=== PATIENT | female | born 2005 | race Caucasian/White ===

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

== ENCOUNTER → 2023-07-02 15:09 | Outpatient (BNVA) | payer OTHER, SELFPAY | PROVIDERS: Visit Provider Family Medicine | DX: R11.2 Nausea with vomiting, unspecified (principal); R14.0 Abdominal distension (gaseous); R10.11 Right upper quadrant pain | CPT/HCPCS: 80053; 80061; 83690; 84443; 85025 ==

== ENCOUNTER 2023-07-12 06:05 | Outpatient (CLI) | payer OTHER, SELFPAY ==
--- NOTE | 2023-07-12 06:15 | US_ITS ---
WS: [id number] RIGHT UPPER QUADRANT ULTRASOUND HISTORY: post-prandial N/V/D, bloating, RUQ pain COMPARISON: None available. Liver: 15.7 cm in length. Normal size liver and echogenicity. No bile duct dilatation or mass. Portal Vein: Normal hepatopetal flow with monophasic waveform. Gallbladder: Normally distended gallbladder with no stones or wall thickening. CBD: 0.3 cm Pancreas: Normal size and echogenicity. Right kidney: 11.0 cm in length. Normal size and echogenicity. No hydronephrosis or mass. Aorta and IVC: Unremarkable abdominal aorta and IVC. No ascites. IMPRESSION: Normal right upper quadrant ultrasound.
== END 2023-07-12 06:06 | disposition home or self-care (01) ==
LOC: RAD 06:05
PROVIDERS: PCP Family Medicine; Visit Provider Family Medicine
DX: R11.0 Nausea (principal); R11.2 Nausea with vomiting, unspecified; R14.0 Abdominal distension (gaseous); R10.11 Right upper quadrant pain
CPT/HCPCS: 76705

== ENCOUNTER → 2024-05-22 10:03 | Outpatient (BNVA) | payer OTHER, SELFPAY | PROVIDERS: PCP Family Medicine; Visit Provider Nurse Practitioner Family | DX: J02.9 Acute pharyngitis, unspecified (principal) | CPT/HCPCS: 87071; 87880 ==

== ENCOUNTER 2024-09-02 20:11 | Inpatient (IN) | payer OTHER, SELFPAY ==
[2024-09-02] VITALS (7 sets, daily range): BP systolic 131; BP diastolic 85; PULSE 60–88; O2SAT 97–99; BMI 30.9
[2024-09-02 22:20] LABS: Basophils % 0.4 %; Eosinophils # 0.2 10^3/uL (0.0-0.8); Eosinophils % 1.8 %; Hematocrit 35.3 % (36-47); Lymphocytes # 2.5 10^3/uL (0.8-4.8); Lymphocytes % 23.3 %; Mean Corpuscular HGB Conc 33.1 g/dL (30-55); Mean Corpuscular Hemoglobin 29.3 pg (27-33); Mean Corpuscular Volume 88.5 fl (85-98); Mean Platelet Volume 10.5 fL (7.4-10.4); Monocytes # 0.7 10^3/uL (0.2-0.9); Monocytes % 6.7 %; Neutrophils % 67.3 %; Nucleated Red Blood Cells % 0 %; Platelet Count 231 10^3/cmm (157-399); Red Blood Count 3.99 10^6/uL (3.85-5.65); Red Cell Distribution Width 11.9 % (12.1-15.1); White Blood Count 10.84 10^3/uL (3.29-11.43)
[2024-09-03] VITALS (16 sets, daily range): BP systolic 107–135; BP diastolic 58–80; PULSE 57–86; RESP 14–17; TEMP 36.5–36.9; O2SAT 97–100
--- NOTE | 2024-09-03 00:38 | PM.OPHPUD ---
Labor & Delivery H&P Update Date of Procedure: September 03, 2024 Date H&P Performed: 09/03/24 Changes to previous documentation: Spontaneous rupture of membranes, as well as cervical change Admission Diagnosis: 19-year-old 1 para 0 at 37 weeks estimated gestational age presenting with spontaneous rupture membranes Planned procedure: Vaginal delivery Other information: The patient is a healthy 19-year-old female who presented to the hospital after having a gush of fluid just prior to arriving at the hospital. After being evaluated on the OB floor, she was found to be grossly ruptured. She was found to be nitrazine positive. She is also found to be 5 m dilated and 90% effaced. The patient had consistent care during her . There were no complications or concerns during her . Her blood type is A+. Her antibody screen was negative. She passed her glucose screen. She was GBS negative. She was rubella nonimmune. Her infectious disease profile was within normal limits. Related Problem List Diagnoses (1) 37 weeks gestation of : (2) Spontaneous rupture of membranes: A&P Assessment and plan (1) 37 weeks gestation of : I anticipate routine labor and spontaneous vaginal delivery Status: Acute (2) Spontaneous rupture of membranes: Status: Acute PDMP PDMP Reviewed: Not Reviewed
--- NOTE | 2024-09-03 00:42 | P.PCNOB_ITS ---
Delivery Note: Date of delivery: September 03, 2024 Pre-delivery diagnoses: 19-year-old 1 at 37 weeks estima esme gestational age presenting with spontaneous rupture of membranes Post-delivery diagnoses: Status post spontaneous vaginal delivery Procedure: Spontaneous vaginal delivery Delivering Physician: Kaleb Narvaez Estimated blood loss (mL): 100 Pre-Delivery Course: The patient presented to the hospital with spontaneous rupture membranes. She was also noted to be 5 cm dilated and 90% effaced. She quickly progressed to complete without difficulty. Delivery: DELIVERY: The patient progressed to complete without difficulty. She delivered a female with a weight of 6 pounds 5 ounces with Apgars of 8, 9. The baby was delivered from the REBECCA position and placed on the mother's abdomen. The cord was then clamped and cut approximately 1 minute after delivery. There was no nuchal cord. There was no meconium. The placenta and 3 vessel cord were delivered intact shortly thereafter. The perineum and vaginal vault were carefully examined. A second-degree posterior midline laceration was noted. It was repaired with 3-0 Vicryl in usual fashion. Both the mother and the baby were in stable condition. Post-Delivery Status: Good History History History 1 Term Miscarriages/Ectopic Living Children A&P Assessment and plan (1) Spontaneous vaginal delivery: I anticipate routine care. (2) 37 weeks gestation of : PDMP PDMP Reviewed: Not Reviewed Coding Level of Care Code Acute Code for Chg Fwd Diagnoses Spontaneous vaginal delivery O80 37 weeks gestation of Z3A.37
[2024-09-03] MEDS: PRENATAL VIT NO.130/IRON/FOLIC 1 EACH TABLET PO (09:19)
[2024-09-03] MEDS: docusate sodium 100 mg Capsule PO ×2 (09:19→20:27)
[2024-09-03] MEDS: ibuprofen 800 mg tablet PO ×3 (09:19→20:26)
[2024-09-03] MEDS: benzocaine-menthol 78 gm Canister 1 SPRAY TOPICAL (09:20)
[2024-09-03 12:46] LABS: Hematocrit 32.7 % (36-47); Mean Corpuscular HGB Conc 33.6 g/dL (30-55); Mean Corpuscular Volume 89.1 fl (85-98); Mean Platelet Volume 10.6 fL (7.4-10.4); Platelet Count 198 10^3/cmm (157-399); Red Blood Count 3.67 10^6/uL (3.85-5.65); Red Cell Distribution Width 12.1 % (12.1-15.1); White Blood Count 14.48 10^3/uL (3.29-11.43)
[2024-09-03] MEDS: lanolin oint 7 gm 1 APPLIC TOPICAL (20:26)
[2024-09-04 04:40] VITALS: BP 116/74; PULSE 65; RESP 16; TEMP 36.7
[2024-09-04 08:00] VITALS: BP 125/78; PULSE 57; RESP 18; TEMP 36.7
--- NOTE | 2024-09-04 08:04 | PM.OBGYDC ---
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 She was also noted to be 5 cm dilated. She quickly progressed to complete without difficulty. She had an unremarkable delivery of a healthy female . She did have a second-degree posterior midline tear which was repaired appropriately. Her course was also unremarkable. Her bleeding was within normal limits. The baby initially had some difficulty with breast-feeding, but improved dramatically towards the end of her hospital stay. Her pain was well-controlled. Information Peripartum Data: Infant Delivery Method: Vaginal Physical Exam Narrative: The patient is alert. She appears comfortable. Her heart has a regular rate and rhythm with no murmurs appreciated. Lungs are clear to auscultation bilaterally. Her fundus is firm and below the umbilicus. History History History 1 Term Miscarriages/Ectopic Living Children Discharge Data Studies Completed and Pending Laboratory Results WBC 14.48 10^3/uL (3.29-11.43) H 09/03/24 12:34 RBC 3.67 10^6/uL (3.85-5.65) L 09/03/24 12:34 Hgb 11.00 g/dL (11.27-16.99) L 09/03/24 12:34 Hct 32.7 % (36-47) L 09/03/24 12:34 MCV 89.1 fl (85-98) 09/03/24 12:34 MCH 30.0 pg (27-33) 09/03/24 12:34 MCHC 33.6 g/dL (30-55) 09/03/24 12:34 RDW 12.1 % (12.1-15.1) 09/03/24 12:34 Plt Count 198 10^3/cmm (157-399) 09/03/24 12:34 MPV 10.6 fL (7.4-10.4) H 09/03/24 12:34 Neut % (Auto) 67.3 % 09/02/24 21:46 Lymph % (Auto) 23.3 % 09/02/24 21:46 [place] % (Auto) 6.7 % 09/02/24 21:46 Eos % (Auto) 1.8 % 09/02/24 21:46 Baso % (Auto) 0.4 % 09/02/24 21:46 Neut # (Auto) 7.30 10^3/uL (1.8-7.7) 09/02/24 21:46 Lymph # (Auto) 2.5 10^3/uL (0.8-4.8) 09/02/24 21:46 [place] # (Auto) 0.7 10^3/uL (0.2-0.9) 09/02/24 21:46 Eos # (Auto) 0.2 10^3/uL (0.0-0.8) 09/02/24 21:46 Baso # (Auto) 0.0 10^3/uL (0.0-0.1) 09/02/24 21:46 Nucleated RBC % (auto) 0 % 09/02/24 21: Nucleated RBCs # 0.0 /100WBC 09/02/24 21:46 Blood Type A Positive 09/02/24 21:46 Rho(D) Type Rh positive 09/02/24 21:46 Antibody Screen Negative 09/02/24 21:46 Vitals Last Vital Signs Temp 98.0 F 09/04/24 04:40 Pulse 65 09/04/24 04:40 Resp 16 09/04/24 04:40 BP 116/74 09/04/24 04:40 Pulse Ox 97 09/03/24 22:50 O2 Del Method Room Air 09/04/24 04:40 Results Labs OB ([facility]): Blood Type A Positive 09/02/24 Antibody Screen Negative 09/02/24 Hct, (36-47) 32.7 % L 09/03/24 Hgb, (11.27-16.99) 11.00 g/dL L 09/03/24 Rho(D) Type Rh positive 09/02/24 Plt Count, (157-399) 198 10^3/cmm 09/03/24 TSH, (0.27-4.20) 2.16 uIU/mL 07/02/23 Discharge Plan Discharge Patient Disposition: Home Condition: Stable Prescriptions: New ibuprofen 800 mg Tablet 800 mg PO TID Qty: 45 0RF Continued [id number] 30 mg iron- 1.4 mg-300 mg Combo Pack Discharge Orders: Discharge Order (Routine); Ordered 09/04/24 Ordered By: Kaleb Narvaez Referrals: Kaleb Narvaez MD [Physician, Family Practice] - 10/14/24 10:50 am Discharge Diet: Usual diet Discharge Activity: Limit activity as instructed Patient Instructions: Depression (DC), Opioid Safety (DC), Preeclampsia and Eclampsia After Delivery (GEN), Hemorrhage (DC), OB Discharge Report, OB Food/Drug Interaction Guide, OB Care at Home, Opioid Safety, OB Vaginal Deliveries, Abnormal Bleeding Discharge Attestations MANDARIN TEACHER Time Spent in Discharge Care*: less than 30 min Coding Level of Care Code Acute Code for Chg Fwd Diagnoses Spontaneous vaginal delivery O80 37 weeks gestation of Z3A.37
[2024-09-04 11:43] VITALS: BP 137/84; PULSE 71; RESP 16
== END 2024-09-04 10:35 | disposition home or self-care (01) | DRG 807 ==
LOC: OPOB 20:15 → OBGYN 22:19
PROVIDERS: Admitting Provider Family Medicine; PCP Family Medicine; Visit Provider Family Medicine
DX: O70.1 Second degree perineal laceration during delivery (principal); Z37.0 Single live birth; Z3A.37 37 weeks gestation of pregnancy
CPT/HCPCS: 59409; 83986; 85025; 85027; 86850; 86900; J9999

== ENCOUNTER 2025-03-09 18:05 | Emergency (ER) | payer SELFPAY ==
[2025-03-09 18:07] VITALS: BP 147/85; PULSE 98; RESP 14; TEMP 36.9; O2SAT 100
--- OUTSIDE RECORDS SUMMARY | 2025-03-09 18:13 | XMS_ITS | Data Portability ---
Author Organization CYNDIE Yaron Wu [facility] SystemsAngel[facility], [facility] Address [address] [address] Assessment Encounter Date Assessment Date Assessment LastModified by Organization Details LastModified Time 10/13/2024 10/13/2024 Still deciding on control will let us know if she decides. [email or web address] Not available 10/13/2024 14:43:13 Plan of Treatment Reminders Order Date Submit Date Provider Last Modified By Organization Details Last Modified Time Details Appointments LAB 2024 11:50A M LAB Not available Not available Not available ROYLANCE OBI 2024 01:20P M Kaleb Narvaez MD Not available Not available Not available [employer] 2025 12:00P M Kaleb Narvaez MD Not available Not available Not available Lab urinalysi s, complete 2024 025 [email or web address] [facility], [address], [address], [place], [address], 10/13/2024 18:16:34 culture, urine 2024 025 [facility], [address] [place] [address] [address], [address] [place], [address], 10/16/2024 01:36:02 pap, IG + reflex HPV mRNA E6/E7 2024 025 Qoiza [facility], [address] [place] [address] [address], [address] [place], [address], 10/21/2024 06:42:59 streptoco ccus group B, culture, unspecifi ed specimen 2024 025 [facility], [address], [address] [place], [address], 08/30/2024 09:20:53 Referral None recorded. Procedures None recorded. Surgeries None recorded. Imaging None recorded. Medication Orders None recorded. Patient TargetsNo targets recorded. Patient InstructionsNo instructions recorded. Reason for Referral None Reported. Results Created Date Observation Date Name Description Value Unit Range Abnormal Flag Note LastModifiedBy Organization Detail LastModifiedTime 07/03/1907/02/2024 CBC WBC 7.7 x10 4.0-10 .5 Not Available [facility] [address] [facility], [place], [address], 07/02/2024 10:48:16 07/03/19 25 07/02/2024 CBC RBC 4.20 x10 3.50-5 .50 Not Available [facility] [address] [facility], [place], [address], 07/02/2024 10:48:16 07/03/19 25 07/02/2024 CBC HGB 12.4 g/dL 12.0-1 6.0 Not Available [facility] [address] [facility], [place], [address], 07/02/2024 10:48:16 07/03/19 25 07/02/2024 CBC HCT 38.6 % 37.0-4 7.0 Not Available [facility] [address] [facility], [place], [address], 07/02/2024 10:48:16 07/03/19 25 07/02/2024 CBC MCV 92.0 fL 80.0-9 9.9 Not Available [facility] [address] [facility], [place], [address], 07/02/2024 10:48:16 07/03/19 25 07/02/2024 CBC MCH 29.4 pg 27.0-3 2.0 Not Available [facility] [address] [facility], [place], [address], 07/02/2024 10:48:16 07/03/19 25 07/02/2024 CBC MCHC 32.0 g/dL 32.0-3 6.0 Not Available [facility] [address] [facility], [place], [address], 07/02/2024 10:48:16 07/03/19 25 07/02/2024 CBC RDW 13.2 % 11.5-1 4.5 Not Available [facility] [address] [facility], [place], [address], 07/02/2024 10:48:16 07/03/19 25 07/02/2024 CBC plt 237.5 x10 140.0- 451.0 Not Available [facility] [address] [facility] 1, [place], [address], 07/02/2024 10:48:16 07/03/19 25 07/02/2024 CBC lymphocytes % 22.8 % 20.0-5 0.0 Not Available [facility] [address] [facility], [place], [address], 07/02/2024 10:48:16 07/03/19 25 07/02/2024 CBC granulcytes % 71.0 % 30.0-7 0.0 high Not Available [facility] [address] [facility], [place], [address], 07/02/2024 10:48:16 07/03/19 25 07/02/2024 CBC monocytes % 3.9 % 2.0-16 .0 Not Available [facility] [address] [facility], [place], [address], 07/02/2024 10:48:16 07/03/19 25 07/02/2024 CBC granulcytes# 5.5 x10 Not Sanna ilable [facility] [address] [facility] [address], [place], [address], 07/02/2024 10:48:16 07/03/19 25 07/02/2024 CBC lymphocytes # 1.8 x10 Not Available [facility] [address] [address], [place], [address], 07/02/2024 10:48:16 07/03/19 25 07/02/2024 CBC monocytes # 0.3 x10 Not Avai lable [facility] [address] [address], [place], [address], 07/02/2024 10:48:16 07/03/19 25 07/02/2024 GLUCO SE SCREE N glucose screen 134.0 mg/dL high Not Available [facility] [address] [facility] [address], [place], [address], 07/02/2024 11:18:34 08/28/19 25 08/30/2024 STREP TOCOC CUS, GROUP B CULTU RE streptococcu s, group B culture SEE NOTE STREP TOCOC CUS, GROUP B CULTU RE Micro Numbe r: [id number] Test Statu s: Final Speci men Sourc e: Vagin al/an orect al Speci men Quali ty: Adequ ate Resul t: No group B Strep tococ cus isola esme Note per CDC guide lines optim al recov ambrocio is achie patrice by swabb ing both the lower vagin a and rectu m (thro ugh the anal sphin cter) . Not Available [facility] [address], [place], [address], 08/30/2024 09:20:53 10/14/19 25 10/13/2024 URINA LYSIS WITH MICRO color YELLOW Not Available [facility] [address], [place], [address], 10/13/2024 15:33:25 10/14/19 25 10/13/2024 URINA LYSIS WITH MICRO clarity CLOUDY Not Available [facility] [address], [place], [address], 10/13/2024 15:33:25 10/14/19 25 10/13/2024 URINA LYSIS WITH MICRO glu NEGATI VE Not Available [facility] [address], [place], [address], 10/13/2024 15:33:25 10/14/19 25 10/13/2024 URINA LYSIS WITH MICRO bili NEGATI VE Not Available [facility] [address], [place], [address], 10/13/2024 15:33:25 10/14/19 25 10/13/2024 URINA LYSIS WITH MICRO ket NEGATI VE Not Available [facility] [address], [place], [address], 10/13/2024 15:33:25 10/14/19 25 10/13/2024 URINA LYSIS WITH MICRO S.g 1.020 1.005- 1.025 Not Available [facility] [address], [place], [address], 10/13/2024 15:33:25 10/14/19 25 10/13/2024 URINA LYSIS WITH MICRO pH 6.5 5.0-7. 0 Not Available [facility] [address], [place], [address], 10/13/2024 15:33:25 10/14/19 25 10/13/2024 URINA LYSIS WITH MICRO pro 2+ high Not Available [facility] [address], [place], [address], 10/13/2024 15:33:25 10/14/19 25 10/13/2024 URINA LYSIS WITH MICRO uro 1.0 E.U./D L Not Available [facility] [address], [place], [address], 10/13/2024 15:33:25 10/14/19 25 10/13/2024 URINA LYSIS WITH MICRO nit NEGATI VE Not Available [facility] [address], [place], [address], 10/13/2024 15:33:25 10/14/19 25 10/13/2024 URINA LYSIS WITH MICRO blo 2+ high Not Available [facility] [address], [place], [address], 10/13/2024 15:33:25 10/14/19 25 10/13/2024 URINA LYSIS WITH MICRO rosalinda 1+ high Not Available [facility] [address], [place], [address], 10/13/2024 15:33:25 10/14/19 25 10/13/2024 URINA LYSIS WITH MICRO WBC 100 PACKED abnormal > Not Available [facility] [address], [place], [address], 10/13/2024 15:33:25 10/14/19 25 10/13/2024 URINA LYSIS WITH MICRO RBC 15-20 abnormal Not Available [facility] [address], [place], [address], 10/13/2024 15:33:25 10/14/19 25 10/13/2024 URINA LYSIS WITH MICRO epi cells NEGATI VE Not Available [facility] [address] [facility], [place], [address], 10/13/2024 15:33:25 10/14/19 25 10/13/2024 URINA LYSIS WITH MICRO bacteria NEGATI VE Not Available [facility] [address] [facility] 1, [place], [address], 10/13/2024 15:33:25 10/14/19 25 10/13/2024 URINA LYSIS WITH MICRO other NG Not Available [facility] [address] [facility] 1, [place], [address], 10/13/2024 15:33:25 10/14/19 25 10/16/2024 CULTU RE, URINE , ROUTI NE culture, urine, routine SEE NOTE abnormal CULTU RE, URINE , ROUTI NE Micro Numbe r: [id number] Test Statu s: Final Speci men Sourc e: Urine Speci men Quali ty: Adequ ate Resul t: Great er than 100,0 00 CFU/m L of Esche melba a coli E.col i ----- ----- ----- - INT KAYLEIGH AMOX/ CLAVU LANAT E S <=2 AMP/S ULBAC RODRIGUEZ S <=2 CEFAZ PETERSON NR <=4 2 CEFEP EDGARDO S <=0.1 2 CEFTA ZIDIM E S <=1 CEFTR IAXON E S <=0.2 5 CIPRO FLOXA YORDAN S <=0.0 6 GENTA MICIN S <=1 IMIPE NEM S <=0.2 5 LEVOF LOXAC IN S <=0.1 2 MEROP ENEM S <=0.2 5 NITRO FURAN TOIN S <=16 PIP/T AZOBA CTAM S <=4 TRIME THOPR IM/CAUSEY LFA S <=20 S = Susce ptibl e I = Inter media te R = Resis tant NS = Not susce ptibl e SDD = Susce ptibl e Dose Depen dent * = Not Teste d NR = Not Repor esme NN = See Thera py Comme nts THERA PY COMME NTS Note 1: For infec tions other than uncom plica esme UTI cause d by E. coli, K. pneum oniae or P. mirab ilis: Cefaz peterson is resis tant if KAYLEIGH > or = 8 mcg/m L. (Dist ingui shing susce ptibl e versu s inter media te for isola tien with KAYLEIGH < or = 4 mcg/m L requi res addit ional testi ng.) Note 2: For uncom plica esme UTI cause d by E. coli, K. pneum oniae or P. mirab ilis: Cefaz peterson is susce ptibl e if KAYLEIGH <32 mcg/m L and predi cts susce ptibl e to the oral agent s cefac narendra, cefdi evangelist, cefpo doxim e, cefpr ozil, cefur oxime , cepha lexin and lorac arbef . Not Available [address], [address], 10/16/2024 01:36:00 10/14/1910/21/2024 THINP REP TIS PAP (REFL ) HPV MRNA E6/E7 clinical information: normal Juany l exam Not Available [address], [address], 10/21/2024 06:42:59 10/14/1910/21/2024 THINP REP TIS PAP (REFL ) HPV MRNA E6/E7 LMP: normal NONE GIVEN Not Available [address], [address], 10/21/2024 06:42:59 10/14/1910/21/2024 THINP REP TIS PAP (REFL ) HPV MRNA E6/E7 prev. Pap: normal NONE GIVEN Not Available [address], [address], 10/21/2024 06:42:59 10/14/1910/21/2024 THINP REP TIS PAP (REFL ) HPV MRNA E6/E7 prev. BX: normal NONE GIVEN Not Available [address] [address] [place], [address], 10/21/2024 06:42:59 10/14/1910/21/2024 THINP REP TIS PAP (REFL ) HPV MRNA E6/E7 source: normal Cervi x, Endoc ervix Not Available [address] [address] [place], [address], 10/21/2024 06:42:59 10/14/1910/21/2024 THINP REP TIS PAP (REFL ) HPV MRNA E6/E7 statement of adequacy: normal Satis facto ry for evalu ation . Endoc ervic al/tr ansfo rmati on zone compo nent prese nt. Age and/o r menst rual statu s not provi ded Not Available [address] [address] [place], [address], 10/21/2024 06:42:59 10/14/1910/21/2024 THINP REP TIS PAP (REFL ) HPV MRNA E6/E7 general categorizati on: abnormal Cytol ogy Resul ts: Epith elial Cell Abnor malit y Not Available [address] [address] [place], [address], 10/21/2024 06:42:59 10/14/1910/21/2024 THINP REP TIS PAP (REFL ) HPV MRNA E6/E7 interpretati on/result: abnormal Atypi cristino Squam ous Cells of Undet ermin ed Signi fican ce (ASC- [place]) Not Available [address] [address] [place], [address], 10/21/2024 06:42:59 10/14/1910/21/2024 THINP REP TIS PAP (REFL ) HPV MRNA E6/E7 comment: normal This Pap test has been evalu ated with compu ter ethan esme techn ology . Sugge st clini cristino corre latio n and follo w-up as clini liliana appro priat e Not Available [address] [address] [place], [address], 10/21/2024 06:42:59 10/14/1910/21/2024 THINP REP TIS PAP (REFL ) HPV MRNA E6/E7 cytotechnolo gist: normal LM, CT( CP) CT scree rafita locat ion: [address] [address] [place] [address] Not Available [facility] [address] [address] [address], [place], [address], 10/21/2024 06:42:59 10/14/1910/21/2024 THINP REP TIS PAP (REFL ) HPV MRNA E6/E7 pathologist: ky adams M.D., Board Certi fied in Anato kayleigh Patho logy and Cytop athol ogy. Phone : [phone] (elec troni c signa ture) Patho logis t Relea se Date/ Time: 10/19 01:52 PM Not Available [address] [address] [place], [address], 10/21/2024 06:42:59 10/14/1910/21/2024 THINP REP TIS PAP (REFL ) HPV MRNA E6/E7 comment EXPLA NATOR Y NOTE: The Pap is a scree rafita test for cervi cristino cance r. It is not a diagn ostic test and is subje ct to false negat neela and false posit neela resul ts. It is most relia ble when a satis facto ry sampl e, regul geoff obtai marlene, is submi tted with relev ant clini cristino findi ngs and histo ry, and when the Pap resul t is evalu ated along with histo keysha and curre nt clini cristino infor matio n. Not Available [facility] [address] [address] [place], [address], 10/21/2024 06:42:59 10/14/19 25 10/21/2024 HPV MRNA E6/E7 HPV MRNA E6/E7 Not Detect ed not detect ed normal Metho dolog y: Trans cript ion-M ediat ed Ampli ficat ion This assay detec ts E6/E7 viral messe nger RNA (mRNA ) from 14 high- risk HPV types (16,1 8,31, 33,35 ,39,4 5,51, 52,56 ,58,5 9,66, 68). Cervi cristino sourc es are requi red for HPV testi ng. If a vagin al sourc e from a patie nt who has had a total hyste recto my with remov al of cervi x was submi tted, pleas e conta ct the testi ng labor atory for alter nativ e testi ng optio ns. For addit ional infor sam sewell e refer to http: //[facility] jeni sy.que stdia gnost ics.c om/fa q/FAQ 129v1 (This link if provi ded for infor gail sy/ educa cristal l purpo ses only. ) Not Available [address] [address] [place], [address], 10/21/2024 06:43:00 Result Notes None recorded. Problems Name Problem SNOMED Code Status Onset Date Resolution Date Notes Provider Name and Address Organization Details Recorded Time Normal in primigrav [place] 807206691232 103 Active 2023 RICHARD martinez [facility] Angelika Wilkinson 13:25:31 Normal in primigrav [place] 109427703970 103 Completed 2023 RICHARD martinez [facility] Angelika [place] 13:25:31 care status 786872604 Active 2024 RICHARD martinez [facility] Angel[place] 14:27:00 Dysuria 08006739 Active 2024 [facility] 14:27:02 Linh duran 52968118 Active 2024 [facility]ICHARD martinez [facility] 5 12:05:18 Problem Notes None recorded. Medical Equipment None Reported. Allergies No known drug allergies Medications Name Sig Start Date Stop Date Status Note LastModified by Organization Details LastModified Time ibuprofen 800 mg tablet TAKE ONE TABLET BY MOUTH THREE TIMES DAILY 10/13 completed Not Available Not Available Not Available amoxicill in 875 mg tablet two times daily 01/30 completed Recorded 11/07/19 19 8:30AM by ELLEN Lui, Office Visit; Refill Quantity : 0; Not Available Not Available Not Available cephalexi n 500 mg capsule TAKE ONE CAPSULE BY MOUTH THREE TIMES DAILY FOR 7 DAYS active Not Available Not Available No t Available cephalexi n 500 mg tablet Take 1 tablet 3 times a day by oral route for 7 days. 10/28 completed Not Available Not Available Not Available drospiren one 3 mg-ethiny l estradiol 0.03 mg tablet TAKE ONE TABLET BY MOUTH DAILY 01/30 completed Not Available Not Available Not Available nitrofura ntoin monohydra te/macroc rystals 100 mg capsule Take 1 capsule every 12 hours by oral route for 7 days. 05/04 completed Not Available Not Available Not Available Polytrim three times daily in affected eye 01/30 completed Recorded 11/07/19 19 8:31AM by ELLEN Lui, Office Visit; Refill Quantity : 0; Not Available Not Available Not Available Vitamin active Not Available Not Available Not Available Vitals Date Recorded Body height Body mass index (BMI) Body weight Oxygen saturation Heart rate Respiratory rate Body temperature Systolic And Diastolic Provider Name and Address Organization Details Last Updated DateTime 5 160.02 cm 30.1 kg/m2 97737.7 g 98 % 79 /min 18 /min 98.6 [degF] 100/62 mm[Hg] KYARA CALDWELL [facility] 5 09:55:08 Date Recorded Body height Body mass index (BMI) Body weight Oxygen saturation Heart rate Respiratory rate Body temperature Systolic And Diastolic Provider Name and Address Organization Details Last Updated DateTime 5 160.02 cm 30.7 kg/m2 57287.5 8 g 99 % 105 /min 18 /min 98.3 [degF] 110/64 mm[Hg] KYARA OCONNOR [facility], LBarrett 5 10:36:41 Date Recorded Body height Body mass index (BMI) Body weight Oxygen saturation Heart rate Respiratory rate Body temperature Systolic And Diastolic Provider Name and Address Organization Details Last Updated DateTime 5 160.02 cm 30.6 kg/m2 67613.6 9 g 99 % 89 /min 18 /min 98.4 [degF] 120/74 mm[Hg] KYARA OCONNOR [facility], Angelika 5 10:06:39 Date Recorded Body height Body mass index (BMI) Body weight Oxygen saturation Heart rate Respiratory rate Body temperature Systolic And Diastolic Provider Name and Address Organization Details Last Updated DateTime 5 160.02 cm 30.9 kg/m2 65126.8 7 g 99 % 92 /min 16 /min 98.5 [degF] 128/76 mm[Hg] RICHARD JENSEN [facility], LAliciaLEsperanza 5 09:08:05 Date Recorded Body height Body mass index (BMI) Body weight Heart rate Oxygen saturation Respiratory rate Body temperature Systolic And Diastolic Provider Name and Address Organization Details Last Updated DateTime 5 160.02 cm 28 kg/m2 85350.2 9 g 107 /min 9 % 18 /min 98.3 [degF] 126/66 mm[Hg] RICHARD JENSEN [facility], SpencerLAliciaCAlicia 5 14:25:07 Social History Question Answer Notes LastModified by Organizat ion Details LastModified Time Tobacco Smoking Status [facility] 01/31/2024 09:11:47 Are You Blind Or Do You Have Difficulty Seeing? No Information not available 08/27/2024 Are You Deaf Or Do You Have Serious Difficulty Hearing? No Information not available 08/27/2024 Who Is Your Employer? [employer] Information not available 01/31/2024 What Was The Date Of Your Most Recent Tobacco Screening? 08/27/2024 Information not available 08/27/2024 What Is Your Relationship Status? Domestic Partner Information not available 01/31/2024 Are You Sexually Active? Yes Information not available 08/27/2024 Do You Have Difficulty Walking Or Climbing Stairs? No Information not available 08/27/2024 Sex: Unknown Functional Status Question Answer Note LastModified by Organizat ion Details LastModified Time Do you use any illicit or recreational drugs? No Information not available 01/31/2024 Do you or have you ever used any other forms of tobacco or nicotine? Yes Information not available 01/31/2024 What is your level of alcohol consumption? None Information not available 01/31/2024 Are you currently employed? Yes Information not available 01/31/2024 Do you have transportation difficulties? No Information not available 08/27/2024 Are you able to walk independently without assistance or assistive devices? YESWOREST Information not available 08/27/2024 Do you have difficulty doing errands alone? No Information not available 08/27/2024 Are you able to care for yourself independently? 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 No Information not available 08/27/2024 Do you or have you ever used e-cigarettes or vape? Current user of electronic cigarettes Information not available 01/31/2024 Do you or have you ever used any nicotine-free cigarettes, vape, or chewing tobacco? Yes Information not available 01/31/2024 Mental Status Question Answer Note LastModified by Organization D etails LastModified Time Do you have difficulty concentrating, remembering or making decisions? [place] [address] Information no t available 08/27/2024 Family History Relationship Description Onset Age of this Age Resolved Age Notes LastModified by Organization Details LastModified Time Sister Primary malignant neoplasm of thyroid gland [place] [id number] Not available 2023 09:16:58 Medical History No medical history recorded. Gynecological History Statement/Question Response Date of LMP 12/14/2023 LMP Definite Obstetrics History GPAL:G 1 P 1 0 0 1 Type Value Full Term 1 Living 1 Total 1 Immunizations Vaccine Type Date Status Note Provider Nam e and Address Organization Details Recorded Time Hib, unspecified formulation 5 completed RICHARD MIKEY null, [facility] 01/31/2024 09:09:44 Hib, unspecified formulation 4 completed RICHARD MIKEY null, [facility] 01/31/2024 09:09:44 Hib, unspecified formulation 4 completed RICHARD MIKEY null, [facility] 01/31/2024 09:09:44 Hib, unspecified formulation 4 completed RICHARD MIKEY null, [facility] 01/31/2024 09:09:44 IPV 5 completed RICHARD MIKEY null, [facility] 01/31/2024 09:09:44 IPV 4 completed RICHARD MIKEY null, [facility] 01/31/2024 09:09:44 IPV 4 completed RICHARD MIKEY null, [facility] 01/31/2024 09:09:44 IPV 4 completed RICHARD MIKEY null, [facility] 01/31/2024 09:09:44 MMR 9 completed RICHARD MIKEY null, [facility] 01/31/2024 09:09:44 MMRV 5 completed RICHARD JENSEN null, [facility] 01/31/2024 09:09:44 meningococcal conjugate quadrivalent, MenACWY-TT (MCV4) 1 completed RICHARD JENSEN null, [facility] 01/31/2024 09:09:45 Tdap 7 completed RICHARD SQUIRESY null, [facility] 01/31/2024 09:09:45 Hep B, unspecified formulation 4 completed RICHARD JENSEN null, [facility] 01/31/2024 09:09:45 Hep B, unspecified formulation 4 completed RICHARD JENSEN null, [facility] 01/31/2024 09:09:45 Hep B, adolescent or pediatric 3 completed RICHARD JENSEN null, [facility] 01/31/2024 09:09:45 meningococcal MCV4P 7 completed RICHARD JENSEN null, [facility] 01/31/2024 09:09:45 DTaP 5 completed RICHARD JENSEN null, [facility] 01/31/2024 09:09:45 DTaP 4 completed RICHARD SQUIRESY null, [facility] 01/31/2024 09:09:45 DTaP 4 completed RICHARD SQUIRESY null, [facility] 01/31/2024 09:09:45 DTaP 4 completed RICHARD JENSEN null, [facility] 01/31/2024 09:09:45 DTaP 9 completed RICHARD JENSEN [facility] 01/31/2024 09:09:45 Past Encounters Encounter ID Performer Location Encounter Start Date Encounter Closed Date Diagnosis/Indication Diagnosis SNOMED-CT Code Diagnosis ICD10 Code Diagnosis IMO Codes Diagnosis Note [id number] Kaleb Narvaez MD [facility] ([facility] [address] [place] [phone] 01/31/2024 09:04:38 01/31/2024 09:52:27 Normal in primigravida [id number] Z34.00 Gestation period, 6 weeks [id number] Z3A.01 [id number] Kaleb Narvaez MD [facility] ([facility]) [address] [place] [address] [phone] 5 03/03/2024 09:35:05 03/03/2024 11:40:37 Normal in primigravida [id number] Gestation period, 11 weeks [id number] Z3A.11 [id number] Kaleb Narvaez MD [facility] ([facility]) [address] [place] [address] [phone] 5 04/02/2024 10:14:17 04/02/2024 11:21:35 Normal in primigravida [id number] Z34.02 Gestation period, 15 weeks 8434346 Z3A.15 [id number] Kaleb Narvaez MD [facility] ([facility]) [address] [place] [address] [phone] 5 05/04/2024 09:30:06 05/04/2024 09:57:54 Normal in primigravida [id number] Z34.02 Gestation period, 20 weeks [id number] Z3A.20 [id number] Kaleb Narvaez MD [facility] ([facility]) [address] [place] [address] [phone] 5 05/04/2024 08:54:54 05/05/2024 15:30:34 [id number] Kaleb Narvaez MD [facility] ([facility]) [address] [place] [address] [phone] 5 05/29/2024 10:36:12 05/29/2024 11:23:33 Normal in primigravida [id number] Z34.02 Gestation period, 23 weeks [id number] Z3A.23 [id number] Kaleb Narvaez MD [facility] ([facility]) [address] [place] [address] [phone] 5 07/02/2024 09:28:08 07/02/2024 10:44:13 Normal in primigravida [id number] Z34.02 Gestation period, 28 weeks [id number] Z3A.28 [id number] Kaleb Narvaez MD [facility] ([facility]) [address] [place] [address] [phone] 5 07/02/2024 09:24:37 07/03/2024 14:41:36 Normal in primigravida [id number] Z34.02 [id number] Kaleb Narvaez MD [facility] ([facility]) [address] [place] [address] [phone] 5 07/09/2024 12:37:17 07/10/2024 10:08:32 [id number] Kaleb Narvaez MD [facility] ([facility]) [address] [place] [address] [phone] 5 07/16/2024 09:39:35 07/16/2024 12:41:13 Normal in primigravida [id number] 55196 Z34.02 Gestation period, 30 weeks 92018316 Z3A.30 [id number] Kaleb Narvaez MD [facility] ([facility]) [address] [place] [address] [phone] 5 07/30/2024 10:21:33 07/30/2024 11:35:05 Normal in primigravida [id number] Z34.02 Gestation period, 32 weeks 0740338 Z3A.32 [id number] Kaleb Narvaez MD [facility] ([facility]) [address] [place] [address] [phone] 5 08/13/2024 09:36:36 08/13/2024 10:22:15 Normal in primigravida [id number] 42279 Z34.02 Gestation period, 34 weeks 44517456 Z3A.34 [id number] Kaleb Narvaez MD [facility] ([facility]) [address] [place] [address] [phone] 5 08/27/2024 08:54:12 08/27/2024 09:33:40 Normal in primigravida [id number] Z34.02 Gestation period, 36 weeks 37314573 Z3A.36 [id number] Kaleb Narvaez MD [facility] ([facility]) [address] [place] [address] 10/13/2024 13:41:39 10/14/2024 10:42:43 care status [id number] Z39.2 [id number] Dysuria [id number] R30.0 [id number] Health Concerns Section Related Observation LastModified by Organization Detai ls LastModified Time None Recorded Concern Status LastModified by Organization Details LastModified Time None Recorded Advance Directives Directive None Recorded Payers Insurance Date Sequence Insurance Name Policy Number Policy Sung Covered Member ID Sung Member ID Guarantor Name 11/27/2024 1 [facility] ([facility] [id number] Dorothy Armstrong [id number] Dorothy Armstrong 11/27/2024 2 [place] Dorothy Armstrong [id number] Dorothy Jia Nathaniel 04/21/2024 1 *SELF PAY* Tawanda Armstrong 03/09/2025 1 [place] [id number] 1 Dorothy Jia Nathaniel [id number] Dorothy Jia Nathaniel 03/09/2025 [place] [facility] Dorothy Armstrong [id number] Dorothy Armstrong Notes Date Note Type Note Provider Name and Address Organization Details Recorded Time 07/16/2024 text/html jr ob routineRep orted by PatientHPIFor associated symptoms, patient reportsedema (ankles)but reportsno abdominal pain,no cramping,no contractions,normal movement,no bleeding,no vaginal discharge,no vaginal/vulvar itching or irritation,no dysuria,no frequency,no urgency,no hematuria,no fever,no nausea,no emesis,no constipation,no diarrhea/loose stool,no visual changes,no headache,no dizziness, andno breathlessness.Pt denies any alcohol or drug use, pt vapeslow back pain, vaginal pressureROS as noted in the [facility] Kaleb Narvaez MD [address] [place], [phone], [facility] 07/16/2024 10:19:24 07/30/2024 text/html ob routineRep orted by PatientHPIFor associated symptoms, patient reportsedema (ankles)but reportsno abdominal pain,no cramping,no contractions,normal movement,no bleeding,no vaginal discharge,no vaginal/vulvar itching or irritation,no dysuria,no frequency,no urgency,no hematuria,no fever,no nausea,no emesis,no constipation,no diarrhea/loose stool,no visual changes,no headache,no dizziness, andno breathlessness.Pt denies any alcohol or drug use, pt vapesPelvic pressure.heartburnROS as noted in the [facility] Kaleb Narvaez MD [address] [place] [address], [phone], [facility] 07/30/2024 11:34:02 08/13/2024 text/html ob routineRep orted by PatientHPIFor associated symptoms, patient reportsedema (ankles)but reportsno abdominal pain,no cramping,no contractions,normal movement,no bleeding,no vaginal discharge,no vaginal/vulvar itching or irritation,no dysuria,no frequency,no urgency,no hematuria,no fever,no nausea,no emesis,no constipation,no diarrhea/loose stool,no visual changes,no headache,no dizziness, andno breathlessness.Pt denies any alcohol or drug use, pt vapesPelvic pressure.heartburnROS as noted in the [facility] Kaleb Narvaez MD [address] [place] [address], [phone], [facility] 08/13/2024 10:18:07 08/27/2024 text/html jr ob routineRep orted by PatientHPIFor associated symptoms, patient reportsedema (ankles)but reportsno abdominal pain,no cramping,no contractions,normal movement,no bleeding,no vaginal discharge,no vaginal/vulvar itching or irritation,no dysuria,no frequency,no urgency,no hematuria,no fever,no nausea,no emesis,no constipation,no diarrhea/loose stool,no visual changes,no headache,no dizziness, andno breathlessness.pelvic pressure, heartburn, low back painPt denies any alcohol or drug use, pt vapesROS as noted in the [facility] Kaleb Narvaez MD [address] [place] [address], [phone], [facility] 08/27/2024 09:27:06 10/13/2024 text/html VisitReported by PatientHPIFor associated symptoms, patient reportsdysuriabut reportsno abnormal bleeding,no vaginal discharge,no pelvic pain,laceration well healed,no fecal incontinence,no urinary incontinence,no fever,no problems, andnormal mood. For onset/timing, patient reportsdate of delivery: (09/03/24). For quality, patient reportsnsvd. For context, patient reportsno complications,no complications,feeding choice: breast,good support from partner/family,resumed sexual activity yes, andresumed menstrual bleeding no. For contraception plan, patient reportscondoms/barrier method. Kaleb Narvaez MD [address] [place] [address], [phone], [facility] 11/27/2024 10:10:15 OBGyn Episode Ob Episode Information Episode Created Date Number of Fetuses Patient Bloodtype Patient rh Status Prepregnancy Weight lbs Domestic Partner Domestic Partner Phone Father Name Senior Software Architect Status 01/31/20 24 1 A Positive Vanessa Jessa CLOSED Fetus Data First Name Last Name Admitted to NICU Weight (g) Sex Living Outcome Pediatric Complications Fetus ID Race Codes Race Delivery Type [employer] Murphy n false 2863.29 [id number] F true Full Term [id number] VAGINAL Problems Problem Notes Problem Name Start Date End Date Resolution Snomed Code Not e Normal in primigravida 02/26/2024 [id number] Siva Calculation Initial Siva Date Initial Exam Date Initial Exam Provider Initial Ultrasound Date Last Menstrual Period Date Ultra Sound Weeks Gestation 09/19/2024 01/31/2024 12/14/2023 0 Eighteen To Twenty Week Siva Update Ultra Sound Date Fundal Height At Umbil Quickening Date Ultra Sound Latest Weeks Gestation Final Siva Confirmed By Final Siva Confirmed Date Final Siva Date Ultra Sound Latest Days Gestation 0 0 Pre-chelsi Flowsheet Flowsheet Date 01/31/2024 Serrano Score Blood Edema Fundus Height Fundus Units Glucose Ketones Leukocytes Nitrite Labor Signs Protein Cervic Dilation Cervic Effacement Cervic Station Type Weight in lbs Pre/Post Dialysis Refused Weight 162.566364040009 BP Diastolic BP Location Tested BP Systolic BP Type 96 148 Fetus Heart Rate Present Fetus Movement Comments OBI- nausea, cramping, const ipation Flowsheet Date 03/03/2024 Serrano Score Blood Edema Fundus Height Fundus Units Glucose Ketones Leukocytes Nitrite Labor Signs Protein Cervic Dilation Cervic Effacement Cervic Station Type Weight in lbs Pre/Post Dialysis Refused 159.671113381849 BP Diastolic BP Location Tested BP Systolic BP Type 70 130 sitting Fetus Heart Rate Present A 151 Fetus Movement Comments NOB, headaches Flowsheet Date 04/02/2024 Serrano Score Blood Edema Fundus Height Fundus Units Glucose Ketones Leukocytes Nitrite Labor Signs Protein Cervic Dilation Cervic Effacement Cervic Station none 1+ trace Type Weight in lbs Pre/Post Dialysis Refused 153.682236168354 BP Diastolic BP Location Tested BP Systolic BP Type 64 128 Fetus Heart Rate Present Fetus Movement Comments feeling good, frequent voidi ng- started antibiotics yesterday Flowsheet Date 05/04/2024 Serrano Score Blood Edema Fundus Height Fundus Units Glucose Ketones Leukocytes Nitrite Labor Signs Protein Cervic Dilation Cervic Effacement Cervic Station Type Weight in lbs Pre/Post Dialysis Refused BP Diastolic BP Location Tested BP Systolic BP Type Fetus Heart Rate Present Fetus Movement Comments Flowsheet Date 05/04/2024 Serrano Score Blood Edema Fundus Height Fundus Units Glucose Ketones Leukocytes Nitrite Labor Signs Protein Cervic Dilation Cervic Effacement Cervic Station 20 cm none trace Negative neg Type Weight in lbs Pre/Post Dialysis Refused 157.209934609541 BP Diastolic BP Location Tested BP Systolic BP Type 74 130 sitting Fetus Heart Rate Present A 146 Present Fetus Movement A Yes Comments feeling well Flowsheet Date 05/05/2024 Serrano Score Blood Edema Fundus Height Fundus Units Glucose Ketones Leukocytes Nitrite Labor Signs Protein Cervic Dilation Cervic Effacement Cervic Station Type Weight in lbs Pre/Post Dialysis Refused BP Diastolic BP Location Tested BP Systolic BP Type Fetus Heart Rate Present Fetus Movement Comments u/s on 05/04/24, SIVA 09/18/24, EGA 20.3, placenta is anterior. No previa or abruption. Unremarkable screening survey of anatomy. Flowsheet Date 05/29/2024 Serrano Score Blood Edema Fundus Height Fundus Units Glucose Ketones Leukocytes Nitrite Labor Signs Protein Cervic Dilation Cervic Effacement Cervic Station 24 cm none 1+ 1+ Type Weight in lbs Pre/Post Dialysis Refused 158.666577096405 BP Diastolic BP Location Tested BP Systolic BP Type 74 120 Fetus Heart Rate Present A 152 Present Fetus Movement A Yes Comments feeling good Flowsheet Date 07/02/2024 Serrano Score Blood Edema Fundus Height Fundus Units Glucose Ketones Leukocytes Nitrite Labor Signs Protein Cervic Dilation Cervic Effacement Cervic Station Type Weight in lbs Pre/Post Dialysis Refused BP Diastolic BP Location Tested BP Systolic BP Type Fetus Heart Rate Present Fetus Movement Comments Flowsheet Date 07/02/2024 Serrano Score Blood Edema Fundus Height Fundus Units Glucose Ketones Leukocytes Nitrite Labor Signs Protein Cervic Dilation Cervic Effacement Cervic Station none Negative trace Type Weight in lbs Pre/Post Dialysis Refused 166.422697950442 BP Diastolic BP Location Tested BP Systolic BP Type 62 110 sitting Fetus Heart Rate Present A 134 Present Fetus Movement A Yes Comments low back pain, edema in ankl es, glucose dome today Flowsheet Date 07/09/2024 Serrano Score Blood Edema Fundus Height Fundus Units Glucose Ketones Leukocytes Nitrite Labor Signs Protein Cervic Dilation Cervic Effacement Cervic Station Type Weight in lbs Pre/Post Dialysis Refused BP Diastolic BP Location Tested BP Systolic BP Type Fetus Heart Rate Present Fetus Movement Comments Flowsheet Date 07/10/2024 Serrano Score Blood Edema Fundus Height Fundus Units Glucose Ketones Leukocytes Nitrite Labor Signs Protein Cervic Dilation Cervic Effacement Cervic Station Type Weight in lbs Pre/Post Dialysis Refused BP Diastolic BP Location Tested BP Systolic BP Type Fetus Heart Rate Present Fetus Movement Comments Medicaid RA completed Flowsheet Date 07/16/2024 Serrano Score Blood Edema Fundus Height Fundus Units Glucose Ketones Leukocytes Nitrite Labor Signs Protein Cervic Dilation Cervic Effacement Cervic Station 30 cm none trace neg Type Weight in lbs Pre/Post Dialysis Refused Weight 170.663104241552 BP Diastolic BP Location Tested BP Systolic BP Type 62 100 sitting Fetus Heart Rate Present A 136 Present Fetus Movement A Yes Comments low back pain, edema-ankles, vaginal pressure Flowsheet Date 07/30/2024 Serrano Score Blood Edema Fundus Height Fundus Units Glucose Ketones Leukocytes Nitrite Labor Signs Protein Cervic Dilation Cervic Effacement Cervic Station 32 cm none trace Negative neg Type Weight in lbs Pre/Post Dialysis Refused Weight 173.672653653114 BP Diastolic BP Location Tested BP Systolic BP Type 64 110 sitting Fetus Heart Rate Present A 136 Present Fetus Movement A Yes Comments pelvic pressure, heartburn, edema in ankles Flowsheet Date 08/13/2024 Serrano Score Blood Edema Fundus Height Fundus Units Glucose Ketones Leukocytes Nitrite Labor Signs Protein Cervic Dilation Cervic Effacement Cervic Station 35 cm none none Negative neg Type Weight in lbs Pre/Post Dialysis Refused Weight 172.262059629035 BP Diastolic BP Location Tested BP Systolic BP Type 74 120 sitting Fetus Heart Rate Present A 140 Fetus Movement A Yes Comments edema in ankles, pelvic pres sure/pain, heartvurn Flowsheet Date 08/27/2024 Serrano Score Blood Edema Fundus Height Fundus Units Glucose Ketones Leukocytes Nitrite Labor Signs Protein Cervic Dilation Cervic Effacement Cervic Station 36 cm none 1+ trace 3cm 70% -2 Type Weight in lbs Pre/Post Dialysis Refused Weight 174.378233624410 BP Diastolic BP Location Tested BP Systolic BP Type 76 128 Fetus Heart Rate Present A 136 Fetus Movement A Yes Comments sweling in ankles, pelvic pr essure, heartburn, low back painGroup B strep swab collected today Flowsheet Date 08/31/2024 Serrano Score Blood Edema Fundus Height Fundus Units Glucose Ketones Leukocytes Nitrite Labor Signs Protein Cervic Dilation Cervic Effacement Cervic Station Type Weight in lbs Pre/Post Dialysis Refused BP Diastolic BP Location Tested BP Systolic BP Type Fetus Heart Rate Present Fetus Movement Comments Group B Strep NegativeOB rec ords sent Flowsheet Date 10/13/2024 Serrano Score Blood Edema Fundus Height Fundus Units Glucose Ketones Leukocytes Nitrite Labor Signs Protein Cervic Dilation Cervic Effacement Cervic Station Type Weight in lbs Pre/Post Dialysis Refused Weight 158.427425078289 BP Diastolic BP Location Tested BP Systolic BP Type 66 R arm 126 Fetus Heart Rate Present Fetus Movement Comments Menstrual History Last Menstrual Date Menses Monthly On Bcp Conception Prior Menses Frequency Hcg Plus Date Menarche Onset Age 0812/14/2023 Genetic Screening And Infection History Question Response Note Patient's Age Will Be 35 Years Or Older At Estim ated Date of Delivery false Thalassemia (Honduran, Turkish, Mediterranean, Or Background): MCV < 80 false Neural Tube Defect (Meningomyelocele, Spina Bifi da, Or Anencephaly) false Congenital Heart Defect false Down Syndrome false [place]-Sachs (eg, Taoist, Cajun, Irish-[place]) f alse Raegan Disease false Sickle Cell Disease Or Trait () false Hemophilia Or Other Blood Disorders false Muscular Dystrophy false Cystic Fibrosis false [place]'s Chorea false Intellectual Disability/Autism false If Yes, Was Person Tested For Fragile X? false Other Inherited Genetic Or Chromosomal Disorder false Maternal Metabolic Disorder (eg, Type 1 Diabetes , PKU) false Patient Or Baby's Father Had A Child With Defects Not Listed Above false Recurrent Loss, Or A Stillbirth false Medications (including Suppl ements, Vitamins, Herbs, OTC Drugs), Illicit/Recreational Drugs, Alcohol false If Yes, Agent(s) And Strength/Dosage false Any Other Genetic History false Live With Someone With TB Or Exposed To TB false Patient Or Partner Has History Of Genital Herpes false Rash Or Viral Illness Since Last Menstrual Perio d false History Of STD, Gonorrhea, Chlamydia, HPV, Syphi lis false Other Infection History false History of HIV false History of Hepatitis false Prior GBS-infected child false Hemoglobinopathy Or Carrier false Other Structural Defect false Recent Travel History Outside of Country false Mental Retardation/Autism false Delivery Information Delivery Date Delivery Type Labor Anesthesia Weeks Gestation Incision Type Labor Labor Length Hrs Delivered By Post Complications Tubal Sterilization Discharge Date Comments 5 Sponta neous None 37.5 false Kaleb Narvaez MD None false Discharge Information Feeding Method Contraceptive Method Maternal HG B and HCT Levels Breast
--- NOTE | 2025-03-09 18:18 | ED_ITS ---
HPI - 2 General: Chief complaint: Vaginal Bleeding Stated complaint: possible miscarriage Time Seen by Provider: 03/09/25 18:14 Source: patient Mode of arrival: ambulatory Limitations: no limitations History of Present Illness: 19-year-old female is currently 7 weeks states that today she had some vaginal bleeding. States she passed a few small clots denies any heavy bleeding. Has had 1 previous with no difficulty she denies any pain denies any fevers. Denies any dysuria Related Data Home Medications ?Medication ?Instructions ?Recorded ?Confirmed vits no.105-iron 30 pkg 09/03/24 mg-folic acid 1.4 mg-dha 300 mg oral pack Previous Rx's ?Medication ?Instructions ?Recorded ibuprofen 800 mg tablet 800 mg PO TID #45 tabs 09/04 Allergies Allergy/AdvReac Type Severity Reaction Status Date / Time No Known Allergies Allergy Verified 03/09/25 18:11 Review of Systems 2 : Reports: vaginal bleeding PFSH ED 2 PFSH: Medical History (Updated 03/09/25 @ 20:16 by Isac Martino MD) No pertinent past medical history neghx: htn,dm,thyroid,dvt/pe PCP: None Surgical History No pertinent past surgical history Family History Grandmother Breast cancer Maternal--dx age 58 Denies family history of Colon cancer Ovarian cancer Diabetes Heart disease Hypercholesteremia Hypertension Uterine cancer Thyroid disease Stroke Social History Smoking and tobacco/nicotine status: never used tobacco/nicotine Physical Exam 2 Const: COMMON NORMALS: patient oriented x3 HENMT: COMMON NORMALS: normocephalic and atraumatic HEAD & SCALP: n ormocephalic and atraumatic Neck/C-Spine: COMMON NORMALS: full ROM and supple Chest: COMMONS NORMALS: normal inspection of the chest Resp: COMMON NORMALS: normal respiratory effort Cardio: COMMON NORMALS: regular rate, regular rhythm and No murmurs present (Cardio) RATE: regular rate RHYTHM: regular rhythm GI: COMMON NORMALS: Normal to inspection, nondistended, normoactive bowel sounds present, Soft to palpation, non-tender and no masses PALPATION: Yes Soft to palpation Extremity: COMMON NORMALS: normal to inspection and full ROM Neuro: COMMON NORMALS: patient oriented x3, moves all extremities and no focal motor deficits Psych: COMMON NORMALS: mental status grossly normal, Normal thought process present and cooperative THOUGHT PROCESS: Normal thought process present Skin: COMMON NORMALS: no rashes or lesions noted and no wounds GENERAL SKIN EXAM: no rashes or lesions noted Course 2 Vital Signs: Vital signs: Vital Signs Temperature 98.4 F 03/09/25 18:07 Pulse Rate 88 03/09/25 18:29 Respiratory Rate 14 03/09/25 18:07 Blood Pressure 145/84 03/09/25 18: Pulse Oximetry 99 03/09/25 18: Oxygen Delivery Me thod Room Air 03/09/25 18:29 MDM - OB/Uterine Contractions Medical Decision Making Patient presents here with vaginal bleeding in early . Differential includes ectopic , threatened miscarriage, miscarriage. Her quantitative here was 1100. Ultrasound here showed no definite IUP no signs of ectopic . Patient's bleeding here is minimal and has minimal pain. She has no signs of ectopic. I did discuss with her that the possibilities are that she still is early are not able to see an IUP or she is actively having a miscarriage. I informed her she needs to follow-up with her OB in 1 to 2 days to have a repeat quantitative. I did inform her if she has any increased bleeding or pain she is return to the ER she understands agrees to plan. Medical Records I reviewed the patient's medical records. Lab Data I reviewed the patient's lab results. 03/09/25 18:50 03/09/25 18:50 Laboratory Results WBC 7.55 10^3/uL (3.29-11.43) 03/09/25 18:50 RBC 4.28 10^6/uL (3.85-5.65) 03/09/25 18:50 Hgb 12.00 g/dL (11.27-16.99) 03/09/25 18:50 Hct 36.7 % (36-47) 03/09/25 18:50 MCV 85.7 fl (85-98) 03/09/25 18:50 MCH 28.0 pg (27-33) 03/09/25 18:50 MCHC 32.7 g/dL (30-55) 03/09/25 18:50 RDW 12.2 % (12.1-15.1) 03/09/25 18:50 Plt Count 258 10^3/cmm (157-399) 03/09/25 18:50 MPV 9.7 fL (7.4-10.4) 03/09/25 18:50 Neut % (Auto) 56.1 % 03/09/25 18:50 Lymph % (Auto) 34.7 % 03/09/25 18:50 [place] % (Auto) 6.9 % 03/09/25 18:50 Eos % (Auto) 1.5 % 03/09/25 18:50 Baso % (Auto) 0.5 % 03/09/25 18:50 Neut # (Auto) 4.24 10^3/uL (1.8-7.7) 03/09/25 18:50 Lymph # (Auto) 2.6 10^3/uL (0.8-4.8) 03/09/25 18:50 [place] # (Auto) 0.5 10^3/uL (0.2-0.9) 03/09/25 18:50 Eos # (Auto) 0.1 10^3/uL (0.0-0.8) 03/09/25 18:50 Baso # (Auto) 0.0 10^3/uL (0.0-0.1) 03/09/25 18:50 Nucleated RBC % (auto) 0 % 03/09/25 18:50 Nucleated RBCs # 0.0 /100WBC 03/09/25 18:50 Sodium 138 mmol/L (136-145) 03/09/25 18:50 Potassium 3.7 mmol/L (3.5-5.1) 03/09/25 18:50 Chloride 104 mmol/L (98-107) 03/09/25 18:50 Carbon Dioxide 23 mmol/L (22-29) 03/09/25 18:50 Anion Gap 14.7 (5-19) 03/09/25 18:50 BUN 7 mg/dL (6-20) 03/09/25 18:50 Creatinine 0.6 mg/dL (0.5-0.9) 03/09/25 18:50 GFR Calculation 126.2 mL/min (90-130) 03/09/25 18:50 Glucose 91 mg/dL (65-115) 03/09/25 18:50 Calculated Osmolality 284 mOsm/kg (285-295) L 03/09/25 18:50 Calcium 8.7 mg/dL (8.5-10.5) 03/09/25 18:50 Total Bilirubin 0.2 mg/dL (0.15-1.2) 03/09/25 18:50 AST 12 U/L (0-32) 03/09/25 18:50 ALT 15 U/L (0-33) 03/09/25 18:50 Alkaline Phosphatase 92 U/L (35-105) 03/09/25 18:50 Total Protein 7.0 g/dL (6.6-8.7) 03/09/25 18:50 Albumin 4.0 g/dL (3.5-5.2) 03/09/25 18:50 Globulin 3.0 g/dL (1.3-4.6) 03/09/25 18:50 Ser , Semi-Qnt 1187.00 mIU/mL 03/09/25 18:50 All radiology interpretation(s) finalized by discharge Discharge Plan Discharge Patient Disposition: Home Clinical Impression: Threatened miscarriage Condition: Stable Prescriptions: No Action [id number] ac-dha 30 mg iron- 1.4 mg-300 mg Combo Pack ibuprofen 800 mg Tablet 800 mg PO TID Qty: 45 0RF Discharge Orders: Discharge ED (Routine); Ordered 03/09/25 Ordered By: Isac Martino Referrals: Jaylan Rg DO [Primary Care Provider, Family Practice] Kaleb Narvaez MD [Physician, Family Practice] - 1-3 days Discharge Diet: Advance as tolerated Discharge Activity: Resume usual activity Patient Instructions: Threatened Miscarriage (ED) Print Language: Syriac Coding Level of Care Code ED Bill Of Lading Clerk for Tiana Kaminski
--- NOTE | 2025-03-09 18:18 | USR_ITS ---
PROCEDURE INFORMATION: Exam: US First Trimester, Transabdominal and US , Transvaginal Exam date and time: 03/09/2025 7:24 PM Age: 19 years old Clinical indication: Lmp or gestational age (in weeks): 7w 0d by reported lmp; Antepartum complications; ; G2-p1-a0-l1 presenting with heavy vaginal bleeding; Additional info: Threatened miscarriage LABS AND CLINICAL REPORTS: Choriogonadotropin in serum (Serum HCG): 1187 mIU/mL Last menstrual period start date: 01/19/2025 Gestational age (Established): 7 w 0 d Estimated due date (Established): 10/26/2025 TECHNIQUE: Imaging protocol: Real-time transabdominal obstetrical ultrasound of the maternal pelvis and a first trimester , less than 14 weeks 0 days, with image documentation. Transvaginal imaging was used for better evaluation of the fetus, adnexa, and/or cervix. Other technique: The COMPARISON: US OB >= 14 weeks fetus [id number] 05/04/2024 8:14 AM FINDINGS: Uterus: Uterus measures 8.4 cm x 5.8 cm x 5.4 cm. Dilatation of the intrauterine canal measuring 1.7 cm in AP diameter. Heterogeneous contents within the intrauterine canal. No evidence of viable intrauterine . Intrauterine canal probably contains a mixture of blood and retained products of conception. A single arterial signal seen in the lower uterine segment. Cervix: Trace of fluid in the endocervical canal. Right ovary/adnexa: Right ovary measures 3.2 cm x 1.4 cm x 3.4 cm. Contains small follicles. Shows blood flow. Right ovarian volume is 8.3 mL. Left ovary/adnexa: Left ovary measures 3.7 cm x 1.4 cm x 3.5 cm. Contains a probable hemorrhagic cyst measuring 8 x 12 mm. Contains small follicles Shows blood flow. Left ovarian volume is 9.9 mL. Intraperitoneal space: No free fluid in cul-de-sac. US/US OB <= 14 weeks fetus [id number] IMPRESSION: Findings consistent with those of nonviable , missed with retained products of conception along with blood. Probable small hemorrhagic cyst in the left ovary. Three-month follow-up ultrasound recommended.
[2025-03-09 18:29] VITALS: BP 145/84; PULSE 88; O2SAT 99
[2025-03-09 18:55] LABS: Hematocrit 36.7 % (36-47); Hemoglobin 12.00 g/dL (11.27-16.99); Mean Corpuscular HGB Conc 32.7 g/dL (30-55); Mean Corpuscular Hemoglobin 28.0 pg (27-33); Mean Corpuscular Volume 85.7 fl (85-98); Nucleated Red Blood Cells % 0 %; Platelet Count 258 10^3/cmm (157-399); Red Blood Count 4.28 10^6/uL (3.85-5.65); White Blood Count 7.55 10^3/uL (3.29-11.43)
[2025-03-09 19:41] LABS: Alanine Aminotransferase 15 U/L (0-33); Albumin Level 4.0 g/dL (3.5-5.2); Alkaline Phosphatase 92 U/L (35-105); Anion Gap 14.7 (5-19); Aspartate Amino Transferase 12 U/L (0-32); Blood Urea Nitrogen 7 mg/dL (6-20); Calcium 8.7 mg/dL (8.5-10.5); Carbon Dioxide 23 mmol/L (22-29); Chloride 104 mmol/L (98-107); Globulin 3.0 g/dL (1.3-4.6); Glucose 91 mg/dL (65-115); Osmolality Calculated 284 mOsm/kg (285-295); Potassium 3.7 mmol/L (3.5-5.1); Sodium 138 mmol/L (136-145); Total Protein 7.0 g/dL (6.6-8.7)
--- NOTE | 2025-03-09 19:42 | PC.NURSE ---
This RN at bedside with US for vagina US.
[2025-03-09 20:41] VITALS: BP 147/70; PULSE 92; RESP 16; O2SAT 100
== END 2025-03-09 20:25 | disposition home or self-care (01) ==
PROVIDERS: Emergency Provider Emergency Medicine; PCP Family Medicine
DX: O20.0 Threatened abortion (principal)
CPT/HCPCS: 36415; 76801; 80053; 84702; 85025; 99284; J9999